=== PATIENT | male | born 1955 | race Caucasian/White ===

== ENCOUNTER → 2018-10-07 | Outpatient (CLI) | payer OTHER ==
[~2018-10-07] MED LIST: BENICAR20 MG
[2018-10-07 11:17] LABS: CREATININE 1.2 mg/dL (0.7-1.3)
== END ==
LOC: CAT 10:06
PROVIDERS: Family Medicine
DX: Z13.6 Encounter for screening for cardiovascular disorders (principal); R91.8 Other nonspecific abnormal finding of lung field; E78.00 Pure hypercholesterolemia, unspecified; I25.10 Atherosclerotic heart disease of native coronary artery without angina pectoris

== ENCOUNTER → 2018-10-08 | Outpatient (CLI) | payer OTHER ==
[2018-10-08] VITALS (7 sets, daily range): BP systolic 107–138; BP diastolic 61–73
[~2018-10-08] VITALS: Ht 175.3 cm; Wt 87.1 kg
[2018-10-08 09:44] LABS: HEMATOCRIT 41.8 % (42.0-52.0); HEMOGLOBIN 13.9 gm/dL (14.0-18.0); MCH 25.6 pg (26.0-34.0); MCHC 33.1 g/dL (28.0-37.0); MCV 77.4 fL (80.0-100.0); RBC 5.41 mil/uL (4.50-6.00); RDW 12.9 % (10.5-14.5); WBC 6.8 thou/uL (4.0-11.0)
[2018-10-08 09:50] LABS: CALCIUM 10.5 mg/dL (8.5-10.1); CREATININE 1.1 mg/dL (0.7-1.3); POTASSIUM 4.5 mmol/L (3.5-5.1)
[2018-10-08 10:06] LABS: APTT 26.3 Seconds (24.5-32.8)
[2018-10-08 10:11] LABS: PROTIME 10.3 Seconds (9.3-11.4)
--- NOTE | 2018-10-15 02:05 | PATH ---
[facility] [place] [address] PATHOLOGY RPT PROCEDURE Name: DELIA ALICEA Room #: REG [facility].#: [id number] Admission: 10/08/18 Date of : 59 Discharge: Report #: [id number] Path Case #: [id number] [facility] Accession Number: [id number] . 01 Material submitted: . lung - LEFT LUNG MASS. Modifiers: left . 01 Clinical history: . Left lung mass . 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 Please see comment. (CANDELARIA:dawson; 10/14/2018) . . Surgical Pathology Cancer Case Summary . NON-HODGKIN LYMPHOMA/LYMPHOID NEOPLASMS: Biopsy, Resection . Specimen ___ Other (specify): Lung . Procedure ___ Biopsy . Tumor Site ___ Other tissue(s) or organ(s): Lung . Histologic Type ___ Mature B-cell neoplasm . Mature B-Cell Neoplasms ___ Diffuse large B-cell lymphoma (DLBCL), NOS . Immunophenotyping (flow cytometry and/or immunohistochemistry) ___ Performed Specify method(s) and results: Immunohistochemical stains. Please see comment. . Cytogenetic Studies ___ Not performed . Molecular Genetic Studies ___ Not performed . . [facility] [address] [place] [address] PATHOLOGY RPT PROCEDURE Name: DELIA ALICEA [id number] Admission: 10/08/18 Date of : 59 Discharge: Report #: [id number] Path Case #: [id number] QMS/10/14/2018 . 02 Comment: Examination of the left lung mass shows patchy proliferation of large neoplastic lymphoid cells with irregular nuclear borders, prominent nucleoli and small amount of cytoplasm. Background smaller neoplastic lymphocytes are noted. Immunohistochemical stains with appropriate controls show: . Block (A2): CD45 - Positive CD20 - Positive BCL2 - Positive MUM1 - Patchy positive staining Ki-67 - Approximately 20-30% proliferation fraction CD10 - Negative CD5 - Negative; highlights T-lymphoid cells CD3 - Highlights T-lymphoid cells CD30 - Negative Cyclin D1 - Negative BCL6 - Rare positive staining of B-cells CD23 - Patchy positive staining MART1 - Negative S100 - Negative AE1/AE3 - Negative . Based on the morphology and immunohistochemical staining pattern, these findings are consistent with involvement by CD5 and C10 negative B-cell lymphoma with areas of transformation to large cell lymphoma. Correlation with clinical findings recommended. . . These findings were discussed with JAMES King from Dr. Paolo Garza's office on 10/14/2018 at 2:30pm. . . Co-review: Dr. Yolanda Garcai . (JMQ:dawson; 10/14/2018) . 02 Electronically signed: . Aranza Alvarez MD, Pathologist NPI- [id number] . 01 Gross description: . Received in formalin labeled "Delia Alicea, left lung mass," are 5 distinct needle cores of mercado soft tissue ranging from 0.7-1.3 [place] [address] PATHOLOGY RPT PROCEDURE Name: DELIA ALICEA [id number] Admission: 10/08/18 Date of : 59 Discharge: Report #: [id number] Path Case #: [id number] and measuring less than 0.1 cm each in diameter. The specimen is submitted entirely in cassettes A1 through A3. (TSD; 10/08/2018) TOB/TOB . 02 Microscopic: . . . 02 Pathologist provided ICD-10: C85.12 . 02 CPT . 637283, Q57881, L22642, [id number] Specimen Comment: A courtesy copy of this report has been sent to Specimen Comment: [phone], . Specimen Comment: Report sent to / DR GARZA Performed at: [address] [facility], [place], [place] [id number] MD Arnol Diggs MD Phone: [phone] Performed at: 02 [facility] [address] [id number] MD Aranza Alvarez MD Phone: [phone]
== END | disposition home or self-care (01) ==
LOC: CAT 08:54
PROVIDERS: Radiology Diagnostic Radiology
DX: C85.12 Unspecified B-cell lymphoma, intrathoracic lymph nodes (principal); I10 Essential (primary) hypertension; Z79.899 Other long term (current) drug therapy; Z98.890 Other specified postprocedural states; Z79.01 Long term (current) use of anticoagulants